=== PATIENT | female | born 1980 | race Caucasian/White ===

== ENCOUNTER 2020-12-07 10:03 | Emergency (ER) | payer OTHER, SELFPAY ==
[2020-12-07 10:21] VITALS: BP 122/70; PULSE 64; RESP 14; TEMP 36.7; O2SAT 100
--- NOTE | 2020-12-07 10:45 | ED.GENADULT ---
HPI - General Adult General Chief complaint: Headache Stated complaint: migraine x2 days Time Seen by Provider: 12/07/20 10:14 History of Present Illness HPI narrative: Patient is a 40-year-old female who comes into the ED today complaining of a migraine headache for the last 2-1/2 days. Headache is located primarily over her frontal aspect of head. It is described as pressure. It is constant. Has been using [id number] medicines and they're not helping. Notes that she is also having some discomfort in her jaw. Admits to photophobia. Headache made worse with loud noises as well. She has been having whole body tingling intermittently. Admits to previous history of similar headaches but none this severe. Notes that she had muffled hearing in her left ear 2 days ago, yesterday it was in both ears and today it seems to have resolved. No fevers. Denies any chance of . No other medical conditions. Related Data Allergies Allergy/AdvReac Type Severity Reaction Status Date / Time bee venom protein (honey bee) Allergy Swelling Verified 12/07/20 10:26 [bees] cortisone Allergy Rash Verified 12/07/20 10:26 Review of Systems Constitutional: Constitutional: Reports as per HPI, Denies fever(s), Denies night sweats and Denies weakness ENT: Reports as per HPI Cardiovascular: Cardiovascular: Denies chest pain, Denies edema, Denies leg edema, Denies dyspnea and Denies orthopnea Respiratory: Respiratory: Denies cough and Denies dyspnea Gastrointestinal: Gastrointestinal: Denies abdominal pain, Denies constipation, Denies diarrhea, Denies nausea and Denies vomiting Musculoskeletal: Musculoskeletal: Denies abnormal gait, Denies back pain, Denies numbness and Denies tingling Neurologic: Reports as per HPI, Denies Abnormal speech present, Denies abnormal gait, Reports dizziness, Denies numbness, Denies tingling and Denies weakness Psychiatric: Psychiatric: Denies homicidal ideation and Denies suicidal ideation PMF Social History Social History Gender identity (if verbalized by the patient): Female Exam Const: General: cooperative, healthy appearing, comfortable, no acute distress, well developed, alert, awake and Physically active Orientation/consciousness: patient oriented x3 Other: She is laying in bed with her hat over her eyes. Pleasant and cooperative. HENMT: Head: normal to inspection, normocephalic and atraumatic Ears: external ears normal General nose exam: Normal external nose present Other: Head is nontender to palpate diffusely. No overlying rash. No sinus tenderness. Both TMs are clear, external ears are normal, mastoids are normal. Eyes: General: appearance normal, both eyes and all related structures Pupils: Equal, round and reactive pupils present EOM: EOMs intact bilaterally Neck: Neck: normal visual inspection, full ROM, no lymphadenopathy, no meningeal signs and supple Chest: Chest palpation & inspection: normal inspection of the chest and no tenderness Resp: Effort & Inspection: normal respiratory effort and able to speak in complete sentences Auscultation: clear to auscultation bilaterally Cardio: Rate: regular rate Rhythm: regular rhythm GI: Inspection: normal to inspection GI Palp: No abdominal tenderness : General: Yes no CVA tenderness Back/Spine/Pelvis: Back: no CVA tenderness Skin: General skin exam: normal color and no rashes or lesions noted Lesions: no lesions Neuro: General: patient oriented x3, tone normal, moves all extremities, Normal light touch and pain sensation, no meningeal signs, no focal motor deficits and CN's II-XI intact bilaterally Cranial nerves: Yes CN's II-XII intact bilaterally and Yes Equal, round and reactive pupils present Cognition (Neuro): normal cognition Speech: normal speech and No Abnormal speech present Motor exam (neuro): 5/5 motor strength present throughout Sensory Exam: normal sensation Extrem: General: normal to inspec
[2020-12-07] MEDS: METOCLOPRAMIDE HCL INJ 10 MG/2 ML VIAL IV PUSH (11:35)
[2020-12-07] MEDS: diphenhydrAMINE HCl INJ 50 MG/ML VIAL 25 MG IV PUSH (11:35)
[2020-12-07] MEDS: LACTATED RINGERS 1,000 ML 999 ML IV CONT (11:35)
[2020-12-07] MEDS: KETOROLAC 30 MG/ML VIAL (*BKC) IV PUSH (11:36)
[2020-12-07 11:43] VITALS: BP 107/60; PULSE 66; RESP 16; O2SAT 100
[2020-12-07 13:50] VITALS: BP 101/56; PULSE 59; RESP 14; O2SAT 100
== END 2020-12-07 13:56 | disposition home or self-care (01) ==
PROVIDERS: Emergency Provider Emergency Medicine; PCP Family Medicine
DX: R51.9 Headache, unspecified (principal)
CPT/HCPCS: 96361; 96374; 96375; 99284; J1200; J1885; J2765; J7120